=== PATIENT | male | born 1955 | race Caucasian/White ===

== ENCOUNTER → 2022-06-13 | Outpatient (CLI) | payer BC, SELFPAY ==
[2022-06-13 11:06] LABS: Absolute Lymphocyte Count 2.39 X10^3/uL (0.83-4.51); Absolute Neutrophil Count 7.6 X10^3/uL (2.0-7.7); Basophil# 0.04 X10^3/uL; Basophil% 0.3 % (0-1); Eosinophil# 0.14 X10^3/uL; Eosinophils% 1.2 % (0-5); Hematocrit 48.4 % (40-54); Hemoglobin 16.2 g/dL (13.0-16.5); Lymphocyte # 2.39 X10^3/ul (0.83-4.51); Lymphocyte % 20.8 % (19-41); Mean Corp Hgb Conc 33.5 g/dL (32-36); Mean Corpuscular Hgb 32.5 pg (27.0-32.0); Mean Corpuscular Volume 97.2 fL (80-94); Mean Platelet Vol. 11.3 fl (6.2-12.0); Monocyte# 1.22 X10^3/uL; Monocyte% 10.6 % (0-10); NRBC Flagged by Analyzer 0 % (0-5); Neutrophil # 7.62 X10^3/uL (2.7-7.7); Neutrophil % 66.6 % (47-70); Platelet Count 230 K/mm3 (150-450); RBC Distribution Width CV 14.1 % (11.6-14.6); RBC Distribution Width SD 50.4 fl (35.1-43.9); Red Blood Count 4.98 M/mm3 (4.6-6.2); White Blood Count 11.5 K/mm3 (4.4-11.0)
[2022-06-13 11:11] LABS: Color, Urine Yellow (Yellow); Glucose, Dipstick Normal (Normal); Ketone-Dipstick Negative (Negative); Leukocyte Esterase-Dipstick Negative /ul (Negative); Nitrite-Dipstick Negative (Negative); Occult Blood-Urine Negative /ul (Negative); Protein-Dipstick Negative (Negative); Urine Bilirubin Dipstick Negative (Negative); Urine Clarity Clear (Clear); Urine Urobilinogen Normal (Normal)
[2022-06-13 11:19] LABS: ALB/GLOB Ratio 1.2 RATIO (0.9-2.4); AST(SGOT) 11 U/L (15-37); Alanine Aminotransfer ALT/SGPT 22 U/L (16-61); Alkaline Phosphatase 100 U/L (45-117); Anion Gap 6 (5-15); BUN 14 mg/dL (7-18); Calcium,Total 9.3 mg/dL (8.5-10.1); Chloride 104 mmol/L (98-107); Creatinine, Serum 1.08 mg/dL (0.70-1.30); EST Glomerular Filtration Rate 72 mL/min (>60); Est Glom Filt Rate - Afr Amer 87 mL/min (>60); Globulin 3.4 g/dL (2.2-4.2); Glucose 169 mg/dL (74-106); Potassium 4.4 mmol/L (3.5-5.1); Protein, Total 7.4 g/dL (6.4-8.2); Sodium Level 139 mmol/L (136-145)
== END | disposition home or self-care (01) ==
LOC: LABSPEC 10:28
PROVIDERS: PCP Internal Medicine; Visit Provider Internal Medicine
DX: I10 Essential (primary) hypertension (principal)
CPT/HCPCS: 80053; 81002; 85025

== ENCOUNTER → 2023-05-05 | Outpatient (CLI) | payer BC, SELFPAY ==
[2023-05-05 10:30] LABS: Cholesterol 177 mg/dL (200); High Density Lipoprotein 59 mg/dL; Triglycerides 89 mg/dL; Very Low Density Lipoprotein 18 mg/dL (5-40)
[2023-05-05 10:34] LABS: Hemoglobin A1c 6.7 % (3.8-5.6)
== END | disposition home or self-care (01) ==
PROVIDERS: PCP Internal Medicine; Referring Provider Internal Medicine; Visit Provider Internal Medicine
DX: E11.9 Type 2 diabetes mellitus without complications (principal); E78.5 Hyperlipidemia, unspecified
CPT/HCPCS: 36415; 80061; 83036

== ENCOUNTER → 2025-05-12 | Outpatient (CLI) | payer MEDICARE, BC, SELFPAY ==
[2025-05-12 09:24] LABS: Mucous, Urine 0 SEEN /hpf (<or=2+); Red Blood Cells-Urine 0 SEEN /hpf (0-5)
[2025-05-12 10:40] LABS: Hematocrit 43.1 % (40-54); Hemoglobin 14.6 g/dL (13.0-16.5); Immature Granulocytes Count 0.020 X10^3/uL (0.0-0.0); Mean Corp Hgb Conc 33.9 g/dL (32-36); Mean Corpuscular Volume 96.0 fL (80-94); Mean Platelet Vol. 11.1 fl (6.2-12.0); NRBC Flagged by Analyzer 0 % (0-5); Platelet Count 190 K/mm3 (150-450); RBC Distribution Width CV 13.9 % (11.6-14.6); RBC Distribution Width SD 49.3 fl (35.1-43.9); Red Blood Count 4.49 M/mm3 (4.6-6.2); White Blood Count 7.9 K/mm3 (4.4-11.0)
[2025-05-12 10:45] LABS: Color, Urine Yellow (Yellow); Glucose, Dipstick Normal (Normal); Ketone-Dipstick Negative (Negative); Leukocyte Esterase-Dipstick Negative /ul (Negative); Nitrite-Dipstick Negative (Negative); Occult Blood-Urine Negative /ul (Negative); Protein-Dipstick Negative (Negative); Specific Gravity, Urine 1.020 (1.002-1.030); Urine Bilirubin Dipstick Negative (Negative)
[2025-05-12 10:58] LABS: Creatinine, Urine (random) 139.00 mg/dL (39.00-259.00); Microalbumin,Random Urine < 12.0 mg/L (<20 mg/L)
[2025-05-12 11:00] LABS: Squamous Epithelial Cells - UA 0-5 SEEN /hpf (0-5)
[2025-05-12 11:09] LABS: AST(SGOT) 21 U/L (<=37); Alanine Aminotransfer ALT/SGPT 24 U/L (<=46); Albumin, Serum 4.3 g/dL (3.4-4.8); Alkaline Phosphatase 84 U/L (40-129); Anion Gap 9 (7-18); BUN 16 mg/dL (4-19); BUN/Creat Ratio 16.5 RATIO (10-20); Calcium,Total 9.3 mg/dL (7.6-11.0); Carbon Dioxide 27.7 mmol/L (20.0-29.0); Chloride 102 mmol/L (96-106); Cholesterol 148 mg/dL (<=200); Globulin 2.6 g/dL (2.2-4.2); Glucose 147 mg/dL (70-99); Low Density Lipoprotein Calc. 84 mg/dL; Potassium 4.2 mmol/L (3.5-5.1); Triglycerides 74 mg/dL; Very Low Density Lipoprotein 15 mg/dL (5-40); Vitamin D,25 Hydroxy 34.4 ng/mL (30-100); cholesterol:hdl ratio screen 2.97
== END | disposition home or self-care (01) ==
PROVIDERS: PCP Internal Medicine; Referring Provider Internal Medicine; Visit Provider Internal Medicine
DX: Z12.5 Encounter for screening for malignant neoplasm of prostate (principal); E11.65 Type 2 diabetes mellitus with hyperglycemia; E55.9 Vitamin D deficiency, unspecified
CPT/HCPCS: 36415; 80053; 80061; 81001; 82043; 82306; 82570; 84153; 84443; 85025